=== PATIENT | female | born 1965 | race Caucasian/White ===

== ENCOUNTER 2021-10-05 21:08 | Emergency (ER) | payer BC ==
[~2021-10-05] VITALS: Ht 165.1 cm; Wt 75.0 kg
[2021-10-05 21:13] VITALS: BP 123/83
[2021-10-05 21:15] VITALS: BP 121/80
[2021-10-05 21:30] VITALS: BP 111/78
[2021-10-05 21:45] VITALS: BP 126/86
[2021-10-05] MEDS ORDERED: HYDROCO/APAP1 TA9 PO (21:55)
[2021-10-05] MEDS ORDERED: KEFLEX500 MG PO (21:55)
[2021-10-05 22:00] VITALS: BP 122/77
== END 2021-10-05 22:10 | disposition home or self-care (01) | DRG 914 ==
LOC: ED 21:08
PROC: 0HCBXZZ Extirpation of Matter from Right Upper Arm Skin, External Approach (ICD-10-PCS; principal; 2021-10-05)
DX: S41.141A Puncture wound with foreign body of right upper arm, initial encounter (principal); W60.XXXA Contact with nonvenomous plant thorns and spines and sharp leaves, initial encounter; Y93.H2 Activity, gardening and landscaping; Y92.007 Garden or yard of unspecified non-institutional (private) residence as the place of occurrence of the external cause

== ENCOUNTER 2024-02-13 18:45 | Emergency (ER) | payer OTHER ==
[~2024-02-13] VITALS: Ht 165.1 cm; Wt 66.0 kg
[~2024-02-13 18:45] MED LIST: HYDROCO/APAP1 TA9 PO; KEFLEX500 MG PO; TRAMADOL HYDROC50 M1 PO
[2024-02-13 19:16] LABS: URINE BILIRUBIN - DIPSTICK Negative (NEGATIVE); URINE BLOOD DIPSTICK Negative (NEGATIVE); URINE GLUCOSE - DIPSTICK Negative (NEGATIVE); URINE KETONE Negative (NEGATIVE); URINE LEUK ESTERASE Negative (NEGATIVE); URINE NITRITE - DIPSTICK Negative (Negative); URINE PH 5.5 (4.5-8.0); URINE PROTEIN - DIPSTICK Negative (NEG-TRACE); URINE SPECIFIC GRAVITY >=1.030; URINE UROBILINOGEN - DIPSTICK 0.2 E.U./dL (0.2)
[2024-02-13 19:18] LABS: BASO% 0.6 % (0-3); EOS% 1.7 % (0-8); HEMATOCRIT 41.7 % (37.0-47.0); HEMOGLOBIN 13.7 g/dl (12.0-16.0); IMMATURE GRANULOCYTES 0.2 % (0.0-5.0); LYMPH% 30.4 % (15-41); MEAN CELL VOLUME 94.3 fL CALC (80.0-100.0); MEAN CORPUSCULAR HGB CONC 32.9 g/dL CAL (32.0-36.0); MONO% 8.1 % (2-13); NEUT# 3.92 thou/uL (2.00-7.15); RED BLOOD COUNT 4.42 mill/uL (4.20-5.60); RED CELL DISTRI WIDTH 12.6 % (11.5-15.5)
[2024-02-13 19:20] LABS: URINE COLOR Yellow
[2024-02-13] MEDS ORDERED: SODIUM CHLORIDE 0.9% 1,000 ML IV STA (19:20)
[2024-02-13] MEDS ORDERED: ONDANSETRON HCl 4 MG/2 ML SDV IV STA (19:20)
[2024-02-13] MEDS ORDERED: KETOROLAC TROMETHAMINE 30 MG/ML SDV IV STA (19:20)
[2024-02-13 19:27] LABS: ALBUMIN 4.5 g/dL (3.2-5.0); BILIRUBIN, TOTAL 0.4 mg/dL (0.02-1.3); POTASSIUM 4.1 mmol/l (3.5-5.1); TOTAL PROTEIN 7.6 g/dL (6.3-8.2)
[2024-02-13] MEDS ORDERED: IMITREX100 MG PO (21:21)
[2024-02-13] MEDS ORDERED: TOPAMAX100 MG PO (21:25)
[2024-02-13 23:39] VITALS: BP 131/87
== END 2024-02-13 23:39 | disposition home or self-care (01) | DRG 392 ==
LOC: ED 18:45
PROVIDERS: Nurse Practitioner
DX: R10.84 Generalized abdominal pain (principal); K58.9 Irritable bowel syndrome, unspecified
CPT/HCPCS: Q9967